=== PATIENT | female | born 1965 | race African-American/Black ===

== ENCOUNTER 2021-03-26 09:40 | Emergency (ER) | payer OTHER ==
[~2021-03-26] VITALS: Ht 167.6 cm; Wt 172.7 kg
[~2021-03-26 09:40] MED LIST: ASPI-825 PO; NITR0.4T50 SL; OMEP20CA12 PO
[2021-03-26 09:46] VITALS: BP 160/86
[2021-03-26] MEDS ORDERED: FURO40 PO (10:04)
[2021-03-26] MEDS ORDERED: ALLO-45 PO (10:04)
[2021-03-26] MEDS ORDERED: TOPI25 PO (10:04)
[2021-03-26] MEDS ORDERED: ALBU8HFA IH (10:04)
[2021-03-26] MEDS ORDERED: ASPI-1227 PO (10:04)
[2021-03-26] MEDS ORDERED: OXYB5XL PO (10:04)
[2021-03-26] MEDS ORDERED: CHOL100044 PO (10:04)
[2021-03-26] MEDS ORDERED: ATOR10TA84 PO (10:04)
== END 2021-03-26 14:46 | disposition home or self-care (01) ==
LOC: EMS 09:43
DX: M54.5 Low back pain (principal); M54.2 Cervicalgia; F41.9 Anxiety disorder, unspecified; J45.909 Unspecified asthma, uncomplicated; K21.9 Gastro-esophageal reflux disease without esophagitis; E78.00 Pure hypercholesterolemia, unspecified; I10 Essential (primary) hypertension; G43.909 Migraine, unspecified, not intractable, without status migrainosus; Z86.73 Personal history of transient ischemic attack (TIA), and cerebral infarction without residual deficits; Z88.1 Allergy status to other antibiotic agents
CPT/HCPCS: 99283